=== PATIENT | male | born 1955 | race American Indian/Alaskan Native ===

== ENCOUNTER 2019-01-23 17:44 | Emergency (ER) | payer SELFPAY ==
[2019-01-23] MEDS ORDERED: Albuterol-Ipratrop 3 mg / 0.5 (3 ml) UD INH STA (18:09)
--- NOTE | 2019-01-23 18:15 | C.PDOC ---
History Of Present Illness 63 y/o male, with remote history of asthma, comes in complaining of SOB. Patient states its been triggered by some construction in his apartment. Reports hes been given nebulizers, magnesium, and solumedrol prior to arrival today. Patient denies any fever or chest pain. States he has never been hospitalized before. Time Seen by Provider: 01/23/19 17:46 Chief Complaint (Nursing): Shortness Of Breath History Per: Patient History/Exam Limitations: no limitations Onset/Duration Of Symptoms: Days Current Symptoms Are (Timing): Still Present Past Medical History Reviewed: Historical Data, Nursing Documentation, Vital Signs Vital Signs: Last Vital Signs Temp 98.3 F 01/23/19 17:58 Pulse 85 01/23/19 17:58 Resp 20 01/23/19 17:58 BP 153/79 H 01/23/19 17:58 Pulse Ox 99 01/23/19 17:58 - Medical History PMH: Asthma Family History: States: No Known Family Hx - Social History Hx Alcohol Use: No Hx Substance Use: No - Immunization History Hx Tetanus Toxoid Vaccination: No Hx Influenza Vaccination: No Hx Pneumococcal Vaccination: No Review Of Systems Except As Marked, All Systems Reviewed And Found Negative. Constitutional: Negative for: Fever, Chills Cardiovascular: Negative for: Chest Pain Respiratory: Positive for: Shortness of Breath. Negative for: Cough Physical Exam - Physical Exam Appears: Non-toxic, No Acute Distress Skin: Warm, Dry Head: Atraumatic, Normacephalic Eye(s): bilateral: Normal Inspection Oral Mucosa: Moist Neck: Supple Cardiovascular: Rhythm Regular, No Murmur Respiratory: No Rales, No Rhonchi, No Wheezing, Other (diminished breath sounds bilaterally) Extremity: Bilateral: Atraumatic, Normal Color And Temperature, Normal ROM Neurological/Psych: Oriented x3, Normal Speech ED Course And Treatment - Laboratory Results Result Diagrams: 01/23/19 18:09 01/23/19 18:09 ECG: Interpreted By Me, Viewed By Me ECG Rhythm: Sinus Rhythm Interpretation Of ECG: PVCs Rate From EC O2 Sat by Pulse Oximetry: 99 (RA) Pulse Ox Interpretation: Normal Medical Decision Making Medical Decision Making: s/p tx in field. in er, dminised bs bl no wheezing. Plan: --EKG --Labs --Chest XR --UA --Nebulizer pt observe din nad [address] neg. cxr neg. prefers to go home rather than further obs. and return with worsening. states has nebs at home, requst rx for pump and prednisone. lungs cta. sating 99% speaking full sentences no resp dis tress. Disposition - Disposition Referrals: [facility] [Outside] [facility] [Outside] Disposition: HOME/ ROUTINE Disposition Time: 21:00 Condition: GOOD Additional Instructions: return to er with worsening symptosm or concerns. Prescriptions: Albuterol HFA [Ventolin HFA 90 mcg/actuation (8 g)] 1 puff IH Q4 PRN #20 inhaler PRN Reason: Wheezing Prednisone 50 mg PO DAILY #5 tablet Instructions: Asthma, Adult (DC), Shortness of Breath (Dyspnea) Forms: [employer] ([place]) - Clinical Impression Clinical Impression: Asthma, Dyspnea - Scribe Statement The provider has reviewed the documentation as recorded by the Naeem [place] Provider Attestation: All medical record entries made by the Kimberleeibjovany were at my direction and personally dictated by me. I have reviewed the chart and agree that the record accurately reflects my personal performance of the history, physical exam, medical decision making, and the department course for this patient. I have also personally directed, reviewed, and agree with the discharge instructions and disposition.
[2019-01-23 18:19] LABS: BASO # 0.1 K/uL (0.0-0.2); BASO % 2.7 % (0.0-2.0); EOS # 0.2 K/uL (0.0-0.7); EOS % 5.2 % (0.0-4.0); HEMOGLOBIN 14.4 g/dL (12.0-18.0); LYMPH # 1.2 K/uL (1.0-4.3); LYMPH % 40.5 % (20.0-40.0); MEAN CELL VOLUME 90.7 fL (80.0-94.0); MEAN CORPUSCULAR HEMOGLOBIN 30.1 pg (27.0-31.0); MEAN CORPUSCULAR HGB CONC 33.2 g/dL (33.0-37.0); MEAN PLATELET VOLUME 8.1 fL (7.2-11.7); MONO # 0.4 K/uL (0.0-0.8); MONO % 12.6 % (0.0-10.0); NEUT # 1.1 K/uL (1.8-7.0); NRBC % 0.2 % (0.0-2.0); RBC 4.8 Mil/uL (4.40-5.90); RED CELL DISTRIBUTION WIDTH 13.2 % (11.5-14.5); WHITE BLOOD COUNT 2.9 K/uL (4.8-10.8)
[2019-01-23 18:22] LABS: INR 1.2; PROTHROMBIN TIME 12.7 SECONDS (9.7-12.2)
[2019-01-23 18:27] LABS: ALB/GLOB RATIO 1.4 (1.0-2.1); ALBUMIN 4.1 g/dL (3.5-5.0); BLOOD UREA NITROGEN 17 mg/dL (9-20); GFR NON-AFRICAN AMERICAN > 60
[2019-01-23 18:32] LABS: ALT/SGPT 23 U/L (21-72); AST/SGOT 43 U/L (17-59)
[2019-01-23 18:38] LABS: B-TYPE NATRIURETIC PEPTIDE 78.1 pg/mL (0-900)
[2019-01-23 19:04] VITALS: TEMP 98.6
[2019-01-23] MEDS ORDERED: Iodixanol 320 MG/ML 100 ML BOTTLE IV ONE (19:33)
[2019-01-23 22:12] VITALS: BP 141/78; PULSE 80; RESP 17; O2SAT 99
--- NOTE | 2019-01-24 09:42 | CT ---
Date of service: 01/23/2019 PROCEDURE: CT Chest with contrast (Pulmonary Angiogram) HISTORY: sob elevated dimer COMPARISON: None available. TECHNIQUE: Axial computed tomography images were obtained of the chest in the pulmonary arterial phase of enhancement. Coronal and sagittal reformatted images were created and reviewed. Intravenous contrast dose: 100 mL of Visipaque 320 intravenously Radiation dose: Total exam DLP = 448.06 mGy-cm. This CT exam was performed using one or more of the following dose reduction techniques: Automated exposure control, adjustment of the mA and/or kV according to patient size, and/or use of iterative reconstruction technique. FINDINGS: PULMONARY ARTERIES: Unremarkable. No pulmonary embolism. AORTA: The thoracic aorta is ectatic and tortuous. No aortic atherosclerotic calcification or mural plaque present. LUNGS: No evidence of pneumonia or infiltrate in the lungs. There is 7 millimeter completely calcified nodule at the left lung upper lobe PLEURAL SPACES: Unremarkable. No effusion or pneumothorax. HEART: Unremarkable. No cardiomegaly. No significant pericardial effusion. LYMPH NODES: No lymphadenopathy. BONES, CHEST WALL: Unremarkable. No fracture or destructive lesion OTHER FINDINGS: The scan through the upper abdomen demonstrate 3 centimeter low-attenuation lesion superior to the right kidney may represent right adrenal adenoma versus exophytic right kidney upper pole cyst. There is also low-attenuation lesion exophytic from lower pole of the left kidney measures 3.5 centimeter. Low-attenuation foci are also noted in the both kidneys. IMPRESSION: No evidence of acute pulmonary embolus. No evidence of acute pulmonary disease. Preliminary report was submitted by [facility] Radiology contains concordant findings.
--- NOTE | 2019-01-24 12:36 | RAD ---
Date of service: 01/23/2019 PROCEDURE: CHEST RADIOGRAPH, 1 VIEW HISTORY: chest pain COMPARISON: None available. FINDINGS: LUNGS: No evidence of focal infiltrate or consolidation in the lungs. PLEURA: No pneumothorax or pleural fluid seen. CARDIOVASCULAR: No aortic atherosclerotic calcification present. Normal. OSSEOUS STRUCTURES: No significant abnormalities. VISUALIZED UPPER ABDOMEN: Normal. OTHER FINDINGS: None. IMPRESSION: No active disease.
== END 2019-01-23 21:15 | disposition home or self-care (01) ==
LOC: C.ER 17:44
DX: J45.909 Unspecified asthma, uncomplicated (principal); R06.00 Dyspnea, unspecified
CPT/HCPCS: 71045; 71275; 80053; 83880; 84484; 85025; 85378; 85610; 85730; 99283; Q9967